=== PATIENT | female | born 1940 | race Caucasian/White ===

== ENCOUNTER 2023-07-12 00:20 | Emergency (ER) | payer MEDICARE, BC, OTHER, SELFPAY ==
[2023-07-12] VITALS (14 sets, daily range): BP systolic 108–140; BP diastolic 48–78; PULSE 64–78; RESP 14–24; TEMP 36.4–37.7; O2SAT 88–99; BMI 24.2
--- NOTE | 2023-07-12 00:44 | CT_ITS ---
EXAM: CT HEAD WITHOUT INTRAVENOUS CONTRAST CLINICAL INDICATION: altered mental status TECHNIQUE: Multiple axial images were obtained of the head without intravenous contrast. This CT exam was performed using one or more of the following dose reduction techniques: automated exposure control, adjustment of the mA and/or kV according to patient size, and/or use of iterative reconstruction technique. RADIATION DOSE: CTDIvol = 44.99 mGy, DLP = 863.60 mGy-cm COMPARISON: No relevant prior studies available. FINDINGS: BRAIN AND EXTRA-AXIAL SPACES: Mild generalized atrophy. Mild low density bilaterally in the deep white matter. No intra- or extra-axial hemorrhage. No evidence of acute infarct. No intracranial mass or mass effect. There is preservation of the villegas/white matter interface. Posterior fossa structures are unremarkable. No hydrocephalus. Basal cisterns are patent. BONES/JOINTS: Unremarkable. No discrete lytic or blastic abnormalities. SINUSES: Unremarkable as visualized. Clear. MASTOID AIR CELLS: Unremarkable. Clear. ORBITS: Visualized globes, extraocular muscles, optic nerves and retrobulbar fat appear unremarkable. CT/Brain/Head without Contrast IMPRESSION: Mild generalized atrophy. Mild low density bilaterally in the deep white matter. This likely represents chronic small vessel ischemic changes in the deep white matter. Electronically Signed: Cj Beebe MD at 2:47 EDT ,
--- NOTE | 2023-07-12 00:45 | CT_ITS ---
We are attempting to reach an attending provider to discuss findings. An addendum with communication details will be sent when the communication is complete. EXAM: CT ABDOMEN AND PELVIS WITHOUT INTRAVENOUS CONTRAST CLINICAL INDICATION: abd pain TECHNIQUE: Helically acquired images were obtained of the abdomen and pelvis without intravenous contrast. This CT exam was performed using one or more of the following dose reduction techniques: automated exposure control, adjustment of the mA and/or kV according to patient size, and/or use of iterative reconstruction technique. COMPARISON: No relevant prior studies available. FINDINGS: LOWER THORAX: Subsegmental atelectasis in the lung bases. No cardiomegaly. No significant pericardial effusion. ABDOMEN: LIVER: Unremarkable. Homogeneous. GALLBLADDER AND BILE DUCTS: Unremarkable. No calcified gallstones. No gallbladder distention or wall edema. No intra- or extrahepatic biliary ductal dilation. PANCREAS: Unremarkable. No focal cystic mass. SPLEEN: Unremarkable. Normal size without focal cystic or solid mass. ADRENALS: Unremarkable. No nodules. KIDNEYS AND URETERS: Unremarkable. Normal renal size and position. No hydronephrosis. STOMACH AND BOWEL: The cecum is distended with fluid up to 7 cm in diameter. There appears to be a twist in the terminal ileum and the distal small bowel loops are distended with fluid in the pelvis. Moderate amount of fecal material in the descending colon, sigmoid colon and rectum. No focal inflammatory change. PELVIS: APPENDIX: No evidence of acute appendicitis. BLADDER: Unremarkable. REPRODUCTIVE: Hysterectomy. ABDOMEN and PELVIS: INTRAPERITONEAL SPACE: Unremarkable. No ascites or other fluid collection. No free air. BONES/JOINTS: Unremarkable. No suspicious lytic or blastic abnormality. SOFT TISSUES: Unremarkable. No discrete abdominal or pelvic wall hernia. VASCULATURE: Unremarkable. Abdominal aorta is non-dilated. LYMPH NODES: Unremarkable. No enlarged lymph nodes. CT/Abdomen/Pelvis without Cont IMPRESSION: 1. 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 2. Subsegmental atelectasis in the lung bases. 3. Constipation. 4. Hysterectomy. Electronically Signed: Cj Beebe MD at 2:56 EDT ,
[2023-07-12] MEDS: Ondansetron 4 MG/2 ML Vial IV ×2 (01:10→11:56)
[2023-07-12] MEDS: 0.9% Normal Saline (1000mL) 1,000 ML 150 ML IV (01:19)
[2023-07-12 01:22] LABS: Bacteria 0 SEEN /hpf (None Seen); Mucous, Urine 0 SEEN /hpf (<or=2+); Red Blood Cells-Urine 0 SEEN /hpf (0-5); Squamous Epithelial Cells - UA 0 SEEN /hpf (5-10)
[2023-07-12 01:24] LABS: Color, Urine Yellow (Yellow); Glucose, Dipstick Normal (Normal); Ketone-Dipstick 5 mg/dl (Negative); Leukocyte Esterase-Dipstick 100 /ul (Negative); Nitrite-Dipstick Negative (Negative); Occult Blood-Urine 10 /ul (Negative); Protein-Dipstick 30 mg/dl (Negative); Urine Clarity Clear (Clear); Urine Urobilinogen 1 mg/dl (Normal)
[2023-07-12 01:26] LABS: Absolute Lymphocyte Count 0.61 X10^3/uL (0.83-4.51); Absolute Neutrophil Count 7.3 X10^3/uL (2.0-7.7); Basophil# 0.06 X10^3/uL; Basophil% 0.7 % (0-1); Eosinophil# 0.05 X10^3/uL; Eosinophils% 0.6 % (0-5); Hematocrit 44.4 % (37-47); Hemoglobin 14.3 g/dL (12.0-15.0); Lymphocyte # 0.61 X10^3/ul (0.83-4.51); Lymphocyte % 7.1 % (19-41); Mean Corp Hgb Conc 32.2 g/dL (32-36); Mean Corpuscular Hgb 30.4 pg (27.0-32.0); Mean Corpuscular Volume 94.5 fL (81-99); Mean Platelet Vol. 11.1 fl (6.2-12.0); Monocyte# 0.56 X10^3/uL; Monocyte% 6.5 % (0-10); NRBC Flagged by Analyzer 0 % (0-5); Neutrophil # 7.29 X10^3/uL (2.7-7.7); Neutrophil % 84.9 % (47-70); Platelet Count 244 K/mm3 (150-450); RBC Distribution Width CV 15.9 % (11.6-14.6); RBC Distribution Width SD 54.6 fl (35.1-43.9); White Blood Count 8.6 K/mm3 (4.4-11.0)
--- NOTE | 2023-07-12 01:30 | RAD_ITS ---
EXAM: XR CHEST, 1 VIEW CLINICAL INDICATION: cough TECHNIQUE: Frontal view of the chest. COMPARISON: No relevant prior studies available. FINDINGS: LUNGS AND PLEURAL SPACES: Patchy consolidation in the left mid and lower lung consistent with pneumonia. Emphysema. No pneumothorax. No effusion. HEART: Unremarkable. Cardiac silhouette not enlarged. MEDIASTINUM: Central airways and mediastinal contour are unremarkable. BONES/JOINTS: Unremarkable. No acute fracture. SOFT TISSUES: Unremarkable. RAD/Chest 1 View (Portable) IMPRESSION: 1. Patchy consolidation in the left mid and lower lung consistent with pneumonia. 2. Emphysema. Electronically Signed: Cj Beebe MD at 2:57 EDT ,
--- NOTE | 2023-07-12 01:46 | EX.ED.DYSGE1 ---
HPI History of Present Illness Chief Complaint: Nausea/Vomiting Informant: SNF Narrative Narrative: Patient sent in from local ECF secondary to mental status change with vomiting and diarrhea. Patient has a history of alcohol induced dementia but reportedly is normally ambulatory and cares for herself. Staff states tonight she came out of her room and just her underwear with diarrhea on her. When they went in her room she had vomited and had diarrhea in her room. She is resting with her eyes closed and they state this is not normal for her. [facility] Medical History (Updated 07/12/23 @ 05:[address] Cj Chatterjee MD) Alcohol-induced persisting dementia Bile duct carcinoma Cirrhosis Confusion COPD (chronic obstructive pulmonary disease) Hx of gastroesophageal reflux (GERD) Hypertension Hypothyroidism RSV (acute bronchiolitis due to respiratory syncytial virus) Home Medications amlodipine 5 mg tablet 5 mg PO DAILY 07/12/23 [History Last Taken Unknown] divalproex 125 mg tablet,delayed release (Depakote) 375 mg PO DAILY 07/12/23 [History Last Taken Unknown] fluticasone fur. 100 mcg-umeclid 62.5 mcg-vilant 25 mcg inhalat.powder (Trelegy Ellipta) 1 inh inhalation DAILY 07/12/23 [History Last Taken Unknown] levothyroxine 50 mcg tablet 50 mcg PO DAILY 07/12/23 [History Last Taken Unknown] melatonin 5 mg capsule 5 mg PO QHS 07/12/23 [History Last Taken Unknown] multivitamin (Daily Multi-Vitamin tablet) 1 tab PO DAILY 07/12/23 [History Last Taken Unknown] pantoprazole 40 mg tablet,delayed release 40 mg PO DAILY 07/12/23 [History Last Taken Unknown] potassium chloride 10 mEq tablet,extended release 10 meq PO DAILY 07/12/23 [History Last Taken Unknown] quetiapine 25 mg tablet (Seroquel) 12.5 mg PO QHS 07/12/23 [History Last Taken Unknown] sennosides 8.6 mg tablet (Evac-U-Gen (sennosides)) 8.6 mg PO QHS 07/12/23 [History Last Taken Unknown] Allergy/AdvReac Type Severity Reaction Status Date / Time No Known Allergies Allergy Verified 07/12/23 00:21 Social History Smoking Status: Unknown if ever smoked ROS ROS ED Review of Systems ROS Unobtainable: due to mental condition EXAM Physical Exam Narrative Exam Narrative: Patient will open eyes to voice. Not answering questions. Const Vital Signs: 07/12/23 00:23 07/12/23 01:25 07/12/23 02:20 Temperature 98.6 F 98.6 F Temperature Source Temporal Temporal Pulse Rate 75 75 78 Respiratory Rate 18 19 H 21 H Blood Pressure 126/48 H 108/68 133/67 H Blood Pressure Mean 74 81 89 Blood Pressure Source Blood Pressure Position Blood Pressure Location Pulse Ox 95 95 95 Oxygen Delivery Method Nasal Cannula Nasal Cannula Nasal Cannula Oxygen Flow Rate (L/min) 3 3 2 07/12/23 02:00 07/12/23 03:00 07/12/23 03:47 Temperature 97.6 F L 97.6 F L 97.6 F L Temperature Source Temporal Temporal Pulse Rate 77 76 74 Respiratory Rate 24 H 15 16 Blood Pressure 140/74 H 133/70 H 110/63 Blood Pressure Mean 95 91 78 Blood Pressure Source Blood Pressure Position Blood Pressure Location Pulse Ox 97 94 94 Oxygen Delivery Method Nasal Cannula Oxygen Flow Rate (L/min) 1 07/12/23 04:00 07/12/23 04:00 07/12/23 04:17 Temperature 97.5 F L 97.8 F Temperature Source Temporal Temporal Pulse Rate 75 75 75 Respiratory Rate 19 H 19 H Blood Pressure 127/58 H 113/60 Blood Pressure Mean 81 77 Blood Pressure Source Monitor Blood Pressure Position Semi-Fowlers Blood Pressure Location Left Arm Pulse Ox 92 92 Oxygen Delivery Method Room Air Room Air Oxygen Flow Rate (L/min) 07/12/23 04:46 07/12/23 04:46 07/12/23 05:00 Temperature 97.9 F Temperature Source Temporal Pulse Rate 73 Respiratory Rate 21 H Blood Pressure 116/62 Blood Pressure Mean 80 Blood Pressure Source Blood Pressure Position Blood Pressure Location Pulse Ox 88 99 99 Oxygen Delivery Method Room Air Nasal Cannula Nasal Cannula Oxygen Flow Rate (L/min) 2 2 07/12/23 06:00 07/12/23 06:00 Temperature 99.8 F H Temperature Source Temporal Pulse Rate 73 73 Respiratory Rate 20 H Blood Pressure 129/59 H Blood Pressure Mean 82 Blood Pressure Source Blood Pressure Position Blood Pressure Location Pulse Ox 97 Oxygen Delivery Method Nasal Cannula Oxygen Flow Rate (L/min) 2 Positive well nourished and well developed General Appearance ED: well developed HEENT Reports moist mucous membranes Eyes EOMs intact bilaterally Chest Wall inspection of chest normal and palpation of chest normal Resp normal respiratory effort and clear to auscultation bilaterally Cardio regular rate and regular rhythm GI GI Narrative: Abdomen soft with slight distention. Patient grimaces with palpation. Extremity normal to inspection Neuro Neuro Narrative: Patient rest with eyes closed. Will open her eyes to voice. Skin no rashes or lesions noted MDM MDM MDM Narrative Medical decision making narrative: IV line established. Patient given Zofran for nausea. Patient placed on stud master/mistress. EKG obtained to evaluate for cardiac arrhythmia/ischemia. Labwork obtained to evaluate for leukocytosis, anemia, and electrolyte derangement. Urinalysis obtained to evaluate for infection/hematuria. CT scan of the head obtained given her mental status changes. CT scan of the abdomen pelvis obtained given her abdominal distention and tenderness on exam. Swab for COVID, influenza, and RSV will be obtained. History & Record Review Discussion w/independent historian: Family Lab Data Attestation: I reviewed the patient's lab results. Labs: Laboratory Results - last 24 hr 07/12/23 07/12/23 07/12/23 01:05 01:10 02:02 WBC 8.6 RBC 4.70 Hgb 14.3 Hct 44.4 MCV 94.5 MCH 30.4 MCHC 32.2 RDW Std Deviation 54.6 H RDW Coeff of Francois 15.9 H Plt Count 244 MPV 11.1 Immature Gran % (Auto) 0.200 Neut % (Auto) 84.9 H Lymph % (Auto) 7.1 L [place] % (Auto) 6.5 Eos % (Auto) 0.6 Baso % (Auto) 0.7 Absolute Neuts (auto) 7.3 Absolute Lymphs (auto) 0.61 L Nucleated RBC % 0 Sodium 137 Potassium 5.2 H Chloride 104 Carbon Dioxide 25.0 Anion Gap 8 BUN 31 H Creatinine 1.21 H Estim Creat Clear Calc 28.68 Est GFR (MDRD) Af Amer 55 L Est GFR (MDRD) Non-Af 45 L BUN/Creatinine Ratio 25.6 H Glucose 169 H Calcium 9.6 Total Bilirubin 0.60 Direct Bilirubin 0.09 AST 27 ALT 16 Alkaline Phosphatase 65 Ammonia 42.0 H Total Protein 7.3 Albumin 3.4 Globulin 3.9 Lipase 29 Urine Color Yellow Urine Clarity Clear Urine pH 6.0 Ur Specific [place] 1.020 Urine Protein 30 H Urine Glucose (UA) Normal Urine Ketones 5 H Urine Occult Blood 10 H Urine Nitrite Negative Urine Bilirubin 1 H Urine Urobilinogen 1 H Ur Leukocyte Esterase 100 H Urine RBC 0 SEEN Urine WBC 10-25 SEEN Ur Squamous Epith Cells 0 SEEN Urine Bacteria 0 SEEN Hyaline Casts 5-10 SEEN Urine Mucus 0 SEEN Valproic Acid Cancelled Cancelled 07/12/23 07/12/23 02:50 03:58 WBC RBC Hgb Hct MCV MCH MCHC RDW Std Deviation RDW Coeff of Francois Plt Count MPV Immature Gran % (Auto) Neut % (Auto) Lymph % (Auto) [place] % (Auto) Eos % (Auto) Baso % (Auto) Absolute Neuts (auto) Absolute Lymphs (auto) Nucleated RBC % Sodium Potassium Chloride Carbon Dioxide Anion Gap BUN Creatinine Estim Creat Clear Calc Est GFR (MDRD) Af Amer Est GFR (MDRD) Non-Af BUN/Creatinine Ratio Glucose Calcium Total Bilirubin Direct Bilirubin AST ALT Alkaline Phosphatase Ammonia Total Protein Albumin Globulin Lipase Urine Color Urine Clarity Urine pH Ur Specific [place] Urine Protein Urine Glucose (UA) Urine Ketones Urine Occult Blood Urine Nitrite Urine Bilirubin Urine Urobilinogen Ur Leukocyte Esterase Urine RBC Urine WBC Ur Squamous Epith Cells Urine Bacteria Hyaline Casts Urine Mucus Valproic Acid Cancelled 20 L Radiography Diagnostic Testing: Clinical Impression(s) from Imaging Studies Brain CT 07/12/23 00:44 IMPRESSION: Mild generalized atrophy. Mild low density bilaterally in the deep white matter. This likely represents chronic small vessel ischemic changes in the deep white matter. Electronically Signed: Cj Beebe MD at 2:47 EDT , Abdomen/Pelvis CT 07/12/23 00:45 IMPRESSION: 1. 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 2. Subsegmental atelectasis in the lung bases. 3. Constipation. 4. Hysterectomy. Electronically Signed: Cj Beebe MD at 2:56 EDT , ADDENDUM: 07/12/23 0310 IMPRESSION: 1. 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 2. Subsegmental atelectasis in the lung bases. 3. Constipation. 4. Hysterectomy. N.B. : The above Results were Read Back by Cj Beebe MD to Rose Anne MD, and understanding confirmed on 07/12/2023 03:03:16 (ET). Electronically Signed: Cj Beebe MD at 2:56 EDT , Chest X-Ray 07/12/23 01:30 IMPRESSION: 1. Patchy consolidation in the left mid and lower lung consistent with pneumonia. 2. Emphysema. Electronically Signed: Cj Beebe MD at 2:57 EDT , EKG Initial EKG: Attestation: I personally reviewed and interpreted this EKG as follows: Interpretation: Sinus Rhythm (Sinus at 76 with no obvious ischemia. QTc is 420.) Treatment and Re-Evaluation :: CBC reveals a white count of 8.6 with 84% neutrophils. Hemoglobin is normal at 14.3. Chemistry studies significant for potassium of 5.2 with moderate hemolysis. BUN is 31 and creatinine is 1.21. Glucose is 169. LFTs are unremarkable. Ammonia is only slightly elevated at 42. Urinalysis reveals hyaline cast but no evidence of acute infection. Depakote level is slightly low at 20. Formal chest x-ray per my interpretation reveals hyperinflation with left midlung infiltrate. Radiology interpretation reviewed and agrees. CT scan of the head reveals chronic changes with no acute findings. CT scan of the abdomen pelvis reveals a probable cecal volvulus. Patient has been given IV fluids and Zofran. She has had no further vomiting at this time. Patient is given a dose of Zosyn to cover abdomen as well as pneumonia. Test results are discussed with son who is now present at bedside. I spoke with Dr. Chatterjee who presented to the emergency room to evaluate the patient. After discussing the case with son family would like the patient kept comfortable on hospice care with no aggressive measures. We will speak with hospice to see if they can evaluate the patient. Discharge Plan Triage Chief Complaint: Nausea/Vomiting Other Complaint: Confusion ED Provider: Rose Anne Dx/Rx/DC Orders Clinical Impression: Cecal volvulus, Pneumonia Prescriptions: No Action amlodipine 5 mg tablet 5 mg PO DAILY divalproex [Depakote] 125 mg tablet,delayed release (DR/EC) 375 mg PO DAILY levothyroxine 50 mcg tablet 50 mcg PO DAILY melatonin 5 mg capsule 5 mg PO QHS multivitamin [Daily Multi-Vitamin] Tablet 1 tab PO DAILY potassium chloride 10 mEq tablet extended release 10 meq PO DAILY pantoprazole 40 mg tablet,delayed release (DR/EC) 40 mg PO DAILY sennosides [Evac-U-Gen (sennosides)] 8.6 mg tablet 8.6 mg PO QHS quetiapine [Seroquel] 25 mg tablet 12.5 mg PO QHS Trelegy Ellipta 100-62.5-25 mcg blister with device 1 inh inhalation DAILY Primary Care Provider: Heidi Oliva Referrals: Heidi Oliva MD [Primary Care Provider] -
[2023-07-12 01:52] LABS: Hyaline Cast 5-10 SEEN /lpf (0-5); Urine Bilirubin Dipstick 1 mg/dL (Negative); White Blood Cells 10-25 SEEN /hpf (0-5)
[2023-07-12 02:09] LABS: AST(SGOT) 27 U/L (15-37); Alanine Aminotransfer ALT/SGPT 16 U/L (13-56); Albumin, Serum 3.4 g/dL (3.2-5.0); Alkaline Phosphatase 65 U/L (45-117); Anion Gap 8 (5-15); BUN 31 mg/dL (7-18); BUN/Creat Ratio 25.6 RATIO (10-20); Bilirubin, Direct 0.09 mg/dL (0.00-0.30); Calcium,Total 9.6 mg/dL (8.5-10.1); Chloride 104 mmol/L (98-107); Creatinine, Serum 1.21 mg/dL (0.55-1.02); EST Glomerular Filtration Rate 45 mL/min (>60); Est Glom Filt Rate - Afr Amer 55 mL/min (>60); Estimated Creatinine Clearance 28.68 ml/min; Globulin 3.9 g/dL (2.2-4.2); Glucose 169 mg/dL (74-106); Lipase 29 U/L (13-75); Potassium 5.2 mmol/L (3.5-5.1); Protein, Total 7.3 g/dL (6.4-8.2); Sodium Level 137 mmol/L (136-145)
[2023-07-12] MEDS: Piperacil/Tazobactam 3.375 GM in 0.9% Normal Saline (50mL MB+) 50 ML IV (03:48)
[2023-07-12 04:35] LABS: Valproic Acid (Depakene) Level 20 ug/mL (50-100)
--- NOTE | 2023-07-12 04:47 | EX.PCM.CON.S ---
Assessment & Plan Assessment/Plan (1) Cecal volvulus: PLAN: Patient is an 82-year-old female arriving from a nursing facility with signs and symptoms of cecal volvulus seen on CT imaging. This initially reported to me that patient was oriented to self, however, during ER questioning she is unable to provide an appropriate answer to even orientation questions. I attempted to see if patient's son is able to have any more meaningful communication with his mother but he states he is unable to determine anything intelligible from her responses either. I held a detailed conversation with him regarding her diagnosis and treatment options. I shared with him the surgical treatment would require exploratory laparotomy with right hemicolectomy and either reanastomosis versus ostomy. We discussed that this could be fraught with complication given his mother's pre-existing frailty, declining cognitive status, history of cirrhosis, and extensive surgical history. Specifically we discussed my concerns around the effects of anesthesia to patient's pulmonary status with a potentially pre-existing pneumonia or to her brain with her frail cognitive status and progressive dementia. I informed him that it would very likely be true that she would not regain her current level of function postoperatively and offered to complete a surgical risk calculation using NSQIP. In the meantime he discussed our conversation with his and they jointly agreed that this sample would not want to endure suffering that would be required to recover from surgery. I then shared with him the results of the surgical risk calculation and highlighted risk for any complication being over 53% and risk for postoperative functional decline being greater than 98%. Upon hearing this he reiterated his stance that he would simply like to pursue comfort care and engage with hospice. This wish was forwarded to emergency medicine who will look to facilitate this request. HPI Consult Data Date of Consult: 07/12/23 HPI Narrative Reason for Consultation: Cecal volvulus HPI Narrative: NENA CARROLL, is a 82 F who presents to [facility] from [facility] where she is in a dementia care facility. History is provided by emergency medicine as well as patient's son since patient is unable to cooperate with any questioning. According to this report patient was doing well today until she was found presenting to the nursing station in her underclothes with fecal matter on her leg. Additional report shares that patient had some vomiting alongside of a bout of diarrhea. Patient's son states that he visited his mother earlier today and she was having a good day talking to him appropriately, but then he does admit that his mother has seen some cognitive decline in recent months. Patient's ER workup is notable for CBC with normal leukocytosis, elevated ammonia at 42, and CT imaging of the abdomen pelvis showing probable cecal volvulus. According to patient's son patient suffers from dementia and related to years of alcohol abuse. He states previous to the last 2 months his mother lived with he and his and was rather self-sufficient, but they ultimately sought additional nursing care when they noticed event such as her using dog food in her oatmeal and grinding cookies up for her coffee. He also shares that his mother has had numerous admissions in recent months for small bowel obstructions. He reports that while surgery has been consulted they have generally advised against operating given the frailty of his monitor. Mrs. Carroll son provides additional history to what was given in her initial record and that she has had breast cancer status postmastectomy and ovarian cancer status post oophorectomy. He also shares that she underwent hysterectomy at the time of a when he was born. [facility] Medical History (Updated 07/12/23 @ 05:[address] Cj Chatterjee MD) Alcohol-induced persisting dementia Bile duct carcinoma Cirrhosis Confusion COPD (chronic obstructive pulmonary disease) Hx of gastroesophageal reflux (GERD) Hypertension Hypothyroidism RSV (acute bronchiolitis due to respiratory syncytial virus) Home Medications amlodipine 5 mg tablet 5 mg PO DAILY 07/12/23 [History Last Taken Unknown] divalproex 125 mg tablet,delayed release (Depakote) 375 mg PO DAILY 07/12/23 [History Last Taken Unknown] fluticasone fur. 100 mcg-umeclid 62.5 mcg-vilant 25 mcg inhalat.powder (Trelegy Ellipta) 1 inh inhalation DAILY 07/12/23 [History Last Taken Unknown] levothyroxine 50 mcg tablet 50 mcg PO DAILY 07/12/23 [History Last Taken Unknown] melatonin 5 mg capsule 5 mg PO QHS 07/12/23 [History Last Taken Unknown] multivitamin (Daily Multi-Vitamin tablet) 1 tab PO DAILY 07/12/23 [History Last Taken Unknown] pantoprazole 40 mg tablet,delayed release 40 mg PO DAILY 07/12/23 [History Last Taken Unknown] potassium chloride 10 mEq tablet,extended release 10 meq PO DAILY 07/12/23 [History Last Taken Unknown] quetiapine 25 mg tablet (Seroquel) 12.5 mg PO QHS 07/12/23 [History Last Taken Unknown] sennosides 8.6 mg tablet (Evac-U-Gen (sennosides)) 8.6 mg PO QHS 07/12/23 [History Last Taken Unknown] Allergy/AdvReac Type Severity Reaction Status Date / Time No Known Allergies Allergy Verified 07/12/23 00:21 Social History Smoking Status: Unknown if ever smoked Physical Exam Const Constitutional Narrative: Patient is somnolent and difficult to arouse. When she does arouse she is nonsensical with her replies General Appearance: frail Orientation / Consciousness: confused Nutritional Appearance: cachectic Resp normal respiratory effort GI GI Narrative: Mildly distended, lower midline laparotomy incision scar, soft, tenderness apparent in the right upper quadrant Lab / Micro Data 07/12/23 01:05 07/12/23 01:10 Labs: Laboratory Results - last 24 hr 07/12/23 01:05: WBC 8.6, RBC 4.70, Hgb 14.3, Hct 44.4, MCV 94.5, MCH 30.4, MCHC 32.2, RDW Std Deviation 54.6 H, RDW Coeff of Francois 15.9 H, Plt Count 244, MPV 11.1, Immature Gran % (Auto) 0.200, Neut % (Auto) 84.9 H, Lymph % (Auto) 7.1 L, [place] % (Auto) 6.5, Eos % (Auto) 0.6, Baso % (Auto) 0.7, Absolute Neuts (auto) 7.3, Absolute Lymphs (auto) 0.61 L, Nucleated RBC % 0, Urine Color Yellow, Urine Clarity Clear, Urine pH 6.0, Ur Specific [place] 1.020, Urine Protein 30 H, Urine Glucose (UA) Normal, Urine Ketones 5 H, Urine Occult Blood 10 H, Urine Nitrite Negative, Urine Bilirubin 1 H, Urine Urobilinogen 1 H, Ur Leukocyte Esterase 100 H, Urine RBC 0 SEEN, Urine WBC 10-25 SEEN, Ur Squamous Epith Cells 0 SEEN, Urine Bacteria 0 SEEN, Hyaline Casts 5-10 SEEN, Urine Mucus 0 SEEN 07/12/23 01:10: Sodium 137, Potassium 5.2 H, Chloride 104, Carbon Dioxide 25.0, Anion Gap 8, BUN 31 H, Creatinine 1.21 H, Estim Creat Clear Calc 28.68, Est GFR (MDRD) Af Amer 55 L, Est GFR (MDRD) Non-Af 45 L, BUN/Creatinine Ratio 25.6 H, Glucose 169 H, Calcium 9.6, Total Bilirubin 0.60, Direct Bilirubin 0.09, AST 27, ALT 16, Alkaline Phosphatase 65, Ammonia 42.0 H, Total Protein 7.3, Albumin 3.4, Globulin 3.9, Lipase 29, Valproic Acid Cancelled 07/12/23 02:02: Valproic Acid Cancelled 07/12/23 02:50: Valproic Acid Cancelled 07/12/23 03:58: Valproic Acid 20 L Micro: Microbiology 07/12/23 01:12 Mucosa - Nose SARS-CoV-2, Influenza & RSV (PCR) - Final Imaging Radiology Impression Brain CT 07/12/23 00:44 IMPRESSION: Mild generalized atrophy. Mild low density bilaterally in the deep white matter. This likely represents chronic small vessel ischemic changes in the deep white matter. Electronically Signed: Cj Beebe MD at 2:47 EDT , Abdomen/Pelvis CT 07/12/23 00:45 IMPRESSION: 1. 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 2. Subsegmental atelectasis in the lung bases. 3. Constipation. 4. Hysterectomy. Electronically Signed: Cj Beebe MD at 2:56 EDT , ADDENDUM: 07/12/23 0310 IMPRESSION: 1. 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 2. Subsegmental atelectasis in the lung bases. 3. Constipation. 4. Hysterectomy. N.B. : The above Results were Read Back by Cj Beebe MD to Rose Anne MD, and understanding confirmed on 07/12/2023 03:03:16 (ET). Electronically Signed: Cj Beebe MD at 2:56 EDT , Chest X-Ray 07/12/23 01:30 IMPRESSION: 1. Patchy consolidation in the left mid and lower lung consistent with pneumonia. 2. Emphysema. Electronically Signed: Cj Beebe MD at 2:57 EDT , Charges/Coding Visit Charges Inpatient E&M: 84801 Subs Hosp L2
--- NOTE | 2023-07-12 05:12 | ED.RN ---
Referral made to [facility]. Nurse unable to come to hospital at this time but will follow up when able. Dr. Anne updated.
--- NOTE | 2023-07-12 07:37 | ED.RN ---
HOSPICE CALLED TO GIVE AN UPDATED FAMILY CONTACT NUMBER (DONNA- DAUGHTER IN LAW [id number]). ALSO CHECKED WHEN HOSPICE NURSE WOULD BE IN TO SEE PT, THEY STATED THEY WOULD BE CONTACTING THE FAMILY SOON AND WE WOULD BE UPDATED AFTER THAT.
--- NOTE | 2023-07-12 07:46 | ED.RN ---
- DIRECT LINE TO [address] FOR ANY UPDATES ON PT.
--- NOTE | 2023-07-12 07:53 | ED.RN ---
[facility] CALLED TO LET US KNOW A HOSPICE NURSE WILL BE OVER AT 0900.
== END 2023-07-12 12:51 | disposition hospice, inpatient (51) ==
LOC: ED 02:03 → AC 03:47 → ED 04:43
PROVIDERS: Emergency Provider Emergency Medicine; PCP Internal Medicine; Referring Provider Surgery; Visit Provider Emergency Medicine
DX: J18.9 Pneumonia, unspecified organism (principal); J44.9 Chronic obstructive pulmonary disease, unspecified; F10.97 Alcohol use, unspecified with alcohol-induced persisting dementia; K56.2 Volvulus; Z79.51 Long term (current) use of inhaled steroids; Z79.899 Other long term (current) drug therapy
CPT/HCPCS: 51702; 70450; 71045; 74176; 80048; 80076; 80164; 81001; 82140; 83690; 85025; 87077; 87086; 87088; 87186; 87631; 93005; 96361; 96365; 96375; 96376; 99285; J7030; A4216; J2405